=== PATIENT | female | born 1930 | race Caucasian/White ===

== ENCOUNTER 2016-05-17 18:17 | Emergency (ER) | payer MEDICARE ==
[~2016-05-17 18:17] MED LIST: AMIODARONE HCL200 MG PO; COLACE100 MG PO; ELIQUIS2.5 MG PO; HYDROCODON-ACE1 EAC2 PO; LOPRESSOR50 MG PO; MELATONIN1 M1 SL; SYNTHROID100 MCG PO; TUMS X-STR300 MG PO; VITAMIN D250000 UNIT PO; ZESTRIL40 MG PO
[2016-05-17 19:20] LABS: BASO % 0.5 % (0.1-1.2); EOS # 0.1 10_X3_uL (0.0-0.4); EOS % 1.9 % (0.7-5.8); GRAN % 62.5 % (34.0-71.1); HEMATOCRIT 37.1 % (34-45); LYMPH # 1.6 10_X3_uL (1.2-3.7); LYMPH % 25.5 % (19.3-51.7); MEAN CORPUSCULAR HEMOGLOBIN 34.4 pg (27.0-33.0); MEAN CORPUSCULAR HGB CONC 32.3 g/dL (32.0-36.0); MEAN CORPUSCULAR VOLUME 106.3 fL (79-95); MEAN PLATELET VOLUME 10.4 fl (7.5-11.5); MONO # 0.6 10_X3_uL (0.2-0.9); MONO % 9.6 % (4.7-12.5); PLATELET COUNT 225 x10_3/uL (182-369); RED BLOOD COUNT 3.49 x10_6/uL (3.9-5.2); RED CELL DISTRIBUTION WIDTH 14.7 % (11.7-14.4); WHITE BLOOD COUNT 6.4 x10_3/uL (4.0-10.0)
[2016-05-17 19:35] LABS: MAGNESIUM 1.9 mg/dL (1.8-2.4); POTASSIUM 3.4 mmol/L (3.5-5.1)
== END 2016-05-17 21:20 | disposition home or self-care (01) ==
LOC: EDSTATUS 18:17 → ER 18:18
PROVIDERS: Emergency Medicine
DX: I50.9 Heart failure, unspecified (principal); I48.2 Chronic atrial fibrillation; J90 Pleural effusion, not elsewhere classified; E03.9 Hypothyroidism, unspecified; Z90.710 Acquired absence of both cervix and uterus; Z88.5 Allergy status to narcotic agent; Z88.6 Allergy status to analgesic agent; Z79.02 Long term (current) use of antithrombotics/antiplatelets; R60.9 Edema, unspecified
CPT/HCPCS: 36415; 71020; 80048; 82550; 82553; 83735; 83880; 85025; 93005; 96374; 96375; 99070; 99283-25